=== PATIENT | female | born 1975 | race Two or more races ===

== ENCOUNTER 2017-09-08 18:51 | Inpatient (IN) | payer MEDICAID ==
[~2017-09-08] VITALS: Ht 157.5 cm; Wt 77.1 kg
[2017-09-08 19:25] VITALS: BP 106/73
--- NOTE | 2017-09-08 19:39 | Emergency Room Report ---
History of Present Illness General Chief Complaint: Abdominal Pain Source: Patient (Neli Bryant M.D.) Present Illness HPI 42-year-old female with no sig pmhx p/w abdominal pain 2 days. Patient states pain started last night, localized to and right side of abdomen, non radiating, sharp in nature, intermittent. No relieving or exacerbating factors. Severity is 5/10. Patient went to the primary care doctor's office today, got an ultrasound which showed an appendicitis today Denies nvd. States that she had fever yesterday No hx of abdominal surgeries. No hx of endoscopies/colonoscopies. (Neli Bryant M.D.) Allergies: Coded Allergies: No Known Allergies (Unverified , 09/08/17) Patient History Past Medical History: see triage record Past Surgical History: none Pertinent Family History: none Last Menstrual Period: 08/27/17 Now: No Reviewed Nursing Documentation: PMH: Agreed, PSxH: Agreed (Neli Bryant M.D. ) Review of Systems All Other Systems: negative except mentioned in HPI (Neli Bryant M.D.) Physical Exam Vital Signs Date Time Temp Pulse Resp B/P (MAP) Pulse Ox O2 Delivery O2 Flow Rate FiO2 09/08/17 19:11 98.6 79 16 106/73 100 Room Air Sp02 EP Interpretation: reviewed, normal General Appearance: alert, GCS 15, non-toxic, moderate distress Head: normocephalic, atraumatic Eyes: bilateral eye normal inspection, bilateral eye PERRL, bilateral eye EOMI ENT: normal ENT inspection, normal pharynx, normal voice, moist mucus membranes Neck: normal inspection, full range of motion, supple Respiratory: normal inspection, lungs clear, normal breath sounds, no respiratory distress, no retraction, no wheezing, speaking full sentences, chest symmetrical Cardiovascular #1: normal inspection, regular rate, rhythm, no edema, normal capillary refill Cardiovascular #2: 2+ radial (R), 2+ radial (L) Gastrointestinal: other - Suprapubic and right lower quadrant tenderness, voluntarily guarding, no rebound Musculoskeletal: normal inspection, back normal, normal range of motion, non- tender Neurologic: normal inspection, alert, oriented x3, responsive, motor strength/ tone normal, sensory intact, normal gait, speech normal Psychiatric: normal inspection, judgement/insight normal, memory normal Skin: normal inspection, normal color, no rash, warm/dry, well hydrated, normal turgor (Neli Bryant M.D.) Medical Decision Making Diagnostic Impression: Primary Impression: Acute appendicitis, uncomplicated ER Course 42-year-old female with abdominal pain Differential Diagnosis: Gastritis, gastroenteritis, cholecystitis, appendicitis, diverticulitis, UTI/ pyelo Plan: Basic labs, ua, ekg pain control, IVF CT abdopelvis ER Course: Patient has been stable in the ED. Dr Alex has been made aware of her case however is still pending CT abdo pelvis Dis[facility]: [facility] 42 [facility] with [facility]d [facility] -pending CT abdo pelvis -Dr Alex aware of patient, however pending CT results Please note that this Emergency Department Report was dictated using [employer] machine operator technology software, occasionally this can lead to erroneous entry secondary to interpretation by the dictation equipment. EKG Diagnostic Results EP Interpretation: Yes Rate: normal Rhythm: NSR ST Segments: No acute changes ASA given to patient: no Rhythm Strip EP Interpretation: Yes Rate: 71 Rhythm: NSR, no PVCs, no ectopy Laboratory Tests Test 09/08/17 19:35 09/08/17 19:47 White Blood Count 9.9 K/UL (4.8-10.8) Red Blood Count 4.03 M/UL (4.20-5.40) L Hemoglobin 11.5 G/DL (12.0-16.0) L Hematocrit 35.4 % (37.0-47.0) L Mean Corpuscular Volume 88 FL (80-99) Mean Corpuscular Hemoglobin 28.4 PG (27.0-31.0) Mean Corpuscular Hemoglobin Concent 32.4 G/DL (32.0-36.0) Red Cell Distribution Width 12.1 % (11.6-14.8) Platelet Count 241 K/UL (150-450) Mean Platelet Volume 7.6 FL (6.5-10.1) Neutrophils (%) (Auto) 65.6 % (45.0-75.0) Lymphocytes (%) (Auto) 24.7 % (20.0-45.0) Monocytes (%) (Auto) 6.2 % (1.0-10.0) Eosinophils (%) (Auto) 2.3 % (0.0-3.0) Basophils (%) (Auto) 1.1 % (0.0-2.0) Prothrombin Time 10.3 SEC (9.30-11.50) Prothrombin Time INR 1.0 (0.9-1.1) PTT 29 SEC (23-33) Sodium Level 140 MMOL/L (136-145) Potassium Level 3.3 MMOL/L (3.5-5.1) L Chloride Level 103 MMOL/L (98-107) Carbon Dioxide Level 28 MMOL/L (21-32) Anion Gap 9 mmol/L (5-15) Blood Urea Nitrogen 11 mg/dL (7-18) Creatinine 0.7 MG/DL (0.55-1.30) Estimate Glomerular Filtration Rate > 60 mL/min (>60) Glucose Level 94 MG/DL (74-106) Calcium Level 8.7 MG/DL (8.5-10.1) Total Bilirubin 0.4 MG/DL (0.2-1.0) Aspartate Amino Transferase (AST) 15 U/L (15-37) Alanine Aminotransferase (ALT) 22 U/L (12-78) Alkaline Phosphatase 57 U/L (46-116) Total Protein 7.6 G/DL (6.4-8.2) Albumin 3.7 G/DL (3.4-5.0) Globulin 3.9 g/dL Albumin/Globulin Ratio 0.9 (1.0-2.7) L Lipase 121 U/L (73-393) Urine Color Pale yellow Urine Appearance Slightly cloudy Urine pH 5 (4.5-8.0) Urine Specific [place] 1.015 (1.005-1.035) Urine Protein Negative (NEGATIVE) Urine Glucose (UA) Negative (NEGATIVE) Urine Ketones 2+ (NEGATIVE) H Urine Occult Blood 3+ (NEGATIVE) H Urine Nitrite Negative (NEGATIVE) Urine Bilirubin Negative (NEGATIVE) Urine Urobilinogen Normal MG/DL (0.0-1.0) Urine Leukocyte Esterase 3+ (NEGATIVE) H Urine RBC 2-4 /HPF (0 - 2) H Urine WBC 10-15 /HPF (0 - 2) H Urine Squamous Epithelial Cells Moderate /LPF (NONE/OCC) H Urine Bacteria Few /HPF (NONE) Urine HCG, Qualitative Negative (Retino,Clairose Charlene.) ER Course Hospital Course 42-year-old female referred to ED with right lower quadrant pain. Had ultrasound documenting appendicitis Clinical course Patient initially seen and evaluated by Dr. Bryant; please see her note for full history and physical Labs - no leukocytosis noted, Hb/Hct stable. electrolytes ok. UA unremarkable CT abdomen and pelvis - appendicits Antibiotics given. patient made NPO. Case discussed with Dr. Alex and he agreed to take the patient to the OR. Case discussed with Dr. Grimes and he agreed to accept the patient to his service for further care and support I feel this is a highly complex case requiring extensive working including EKG/ Rhythm strip, Xray/CT/US, Blood/urine lab work, repeat exams while in ED, and administration of strong opiates/narcotics for pain control, admission to hospital or close patient follow up. Diagnosis - appendicitis Admitted to floor in serious condition Labs Test 09/08/17 19:35 09/08/17 19:47 White Blood Count 9.9 K/UL (4.8-10.8) Red Blood Count 4.03 M/UL (4.20-5.40) Hemoglobin 11.5 G/DL (12.0-16.0) Hematocrit 35.4 % (37.0-47.0) Mean Corpuscular Volume 88 FL (80-99) Mean Corpuscular Hemoglobin 28.4 PG (27.0-31.0) Mean Corpuscular Hemoglobin Concent 32.4 G/DL (32.0-36.0) Red Cell Distribution Width 12.1 % (11.6-14.8) Platelet Count 241 K/UL (150-450) Mean Platelet Volume 7.6 FL (6.5-10.1) Neutrophils (%) (Auto) 65.6 % (45.0-75.0) Lymphocytes (%) (Auto) 24.7 % (20.0-45.0) Monocytes (%) (Auto) 6.2 % (1.0-10.0) Eosinophils (%) (Auto) 2.3 % (0.0-3.0) Basophils (%) (Auto) 1.1 % (0.0-2.0) Prothrombin Time 10.3 SEC (9.30-11.50) Prothromb Time International Ratio 1.0 (0.9-1.1) Activated Partial Thromboplast Time 29 SEC (23-33) Sodium Level 140 MMOL/L (136-145) Potassium Level 3.3 MMOL/L (3.5-5.1) Chloride Level 103 MMOL/L (98-107) Carbon Dioxide Level 28 MMOL/L (21-32) Anion Gap 9 mmol/L (5-15) Blood Urea Nitrogen 11 mg/dL (7-18) Creatinine 0.7 MG/DL (0.55-1.30) Estimat Glomerular Filtration Rate > 60 mL/min (>60) Glucose Level 94 MG/DL (74-106) Calcium Level 8.7 MG/DL (8.5-10.1) Total Bilirubin 0.4 MG/DL (0.2-1.0) Aspartate Amino Transf (AST/SGOT) 15 U/L (15-37) Alanine Aminotransferase (ALT/SGPT) 22 U/L (12-78) Alkaline Phosphatase 57 U/L (46-116) Total Protein 7.6 G/DL (6.4-8.2) Albumin 3.7 G/DL (3.4-5.0) Globulin 3.9 g/dL Albumin/Globulin Ratio 0.9 (1.0-2.7) Lipase 121 U/L (73-393) Urine Color Pale yellow Urine Appearance Slightly cloudy Urine pH 5 (4.5-8.0) Urine Specific [place] 1.015 (1.005-1.035) Urine Protein Negative (NEGATIVE) Urine Glucose (UA) Negative (NEGATIVE) Urine Ketones 2+ (NEGATIVE) Urine Occult Blood 3+ (NEGATIVE) Urine Nitrite Negative (NEGATIVE) Urine Bilirubin Negative (NEGATIVE) Urine Urobilinogen Normal MG/DL (0.0-1.0) Urine Leukocyte Esterase 3+ (NEGATIVE) Urine RBC 2-4 /HPF (0 - 2) Urine WBC 10-15 /HPF (0 - 2) Urine Squamous Epithelial Cells Moderate /LPF (NONE/OCC) Urine Bacteria Few /HPF (NONE) Urine HCG, Qualitative Negative Labs Test 09/08/17 19:35 09/08/17 19:47 White Blood Count 9.9 K/UL (4.8-10.8) Red Blood Count 4.03 M/UL (4.20-5.40) Hemoglobin 11.5 G/DL (12.0-16.0) Hematocrit 35.4 % (37.0-47.0) Mean Corpuscular Volume 88 FL (80-99) Mean Corpuscular Hemoglobin 28.4 PG (27.0-31.0) Mean Corpuscular Hemoglobin Concent 32.4 G/DL (32.0-36.0) Red Cell Distribution Width 12.1 % (11.6-14.8) Platelet Count 241 K/UL (150-450) Mean Platelet Volume 7.6 FL (6.5-10.1) Neutrophils (%) (Auto) 65.6 % (45.0-75.0) Lymphocytes (%) (Auto) 24.7 % (20.0-45.0) Monocytes (%) (Auto) 6.2 % (1.0-10.0) Eosinophils (%) (Auto) 2.3 % (0.0-3.0) Basophils (%) (Auto) 1.1 % (0.0-2.0) Prothrombin Time 10.3 SEC (9.30-11.50) Prothromb Time International Ratio 1.0 (0.9-1.1) Activated Partial Thromboplast Time 29 SEC (23-33) Sodium Level 140 MMOL/L (136-145) Potassium Level 3.3 MMOL/L (3.5-5.1) Chloride Level 103 MMOL/L (98-107) Carbon Dioxide Level 28 MMOL/L (21-32) Anion Gap 9 mmol/L (5-15) Blood Urea Nitrogen 11 mg/dL (7-18) Creatinine 0.7 MG/DL (0.55-1.30) Estimat Glomerular Filtration Rate > 60 mL/min (>60) Glucose Level 94 MG/DL (74-106) Calcium Level 8.7 MG/DL (8.5-10.1) Total Bilirubin 0.4 MG/DL (0.2-1.0) Aspartate Amino Transf (AST/SGOT) 15 U/L (15-37) Alanine Aminotransferase (ALT/SGPT) 22 U/L (12-78) Alkaline Phosphatase 57 U/L (46-116) Total Protein 7.6 G/DL (6.4-8.2) Albumin 3.7 G/DL (3.4-5.0) Globulin 3.9 g/dL Albumin/Globulin Ratio 0.9 (1.0-2.7) Lipase 121 U/L (73-393) Urine Color Pale yellow Urine Appearance Slightly cloudy Urine pH 5 (4.5-8.0) Urine Specific [place] 1.015 (1.005-1.035) Urine Protein Negative (NEGATIVE) Urine Glucose (UA) Negative (NEGATIVE) Urine Ketones 2+ (NEGATIVE) Urine Occult Blood 3+ (NEGATIVE) Urine Nitrite Negative (NEGATIVE) Urine Bilirubin Negative (NEGATIVE) Urine Urobilinogen Normal MG/DL (0.0-1.0) Urine Leukocyte Esterase 3+ (NEGATIVE) Urine RBC 2-4 /HPF (0 - 2) Urine WBC 10-15 /HPF (0 - 2) Urine Squamous Epithelial Cells Moderate /LPF (NONE/OCC) Urine Bacteria Few /HPF (NONE) Urine HCG, Qualitative Negative (MICHELLE KUMAR M.D.) CT/MRI/US Diagnostic Results CT/MRI/US Diagnostic Results : Imaging Test Ordered: CT A/P Impression appendicitis (MICHELLE KUMAR M.D.) Last Vital Signs Date Time Temp Pulse Resp B/P (MAP) Pulse Ox O2 Delivery O2 Flow Rate FiO2 09/08/17 19:11 98.6 79 16 106/73 100 Room Air (Neli Bryant M.D.) Status: improved (MICHELLE KUMAR M.D.) Disposition: ADMITTED INPATIENT Condition: Serious Neli Bryant M.D. Sep 08, 2017 19:39 MICHELLE KUMAR M.D. Sep 09, 2017 00:17
[2017-09-08 20:03] LABS: BASOPHILS % (AUTO) 1.1 % (0.0-2.0); EOSINOPHILS % (AUTO) 2.3 % (0.0-3.0); LYMPHOCYTES % (AUTO) 24.7 % (20.0-45.0); MEAN CORPUSCULAR HEMOGLOBIN 28.4 PG (27.0-31.0); MEAN CORPUSCULAR HGB CONC 32.4 G/DL (32.0-36.0); MEAN CORPUSCULAR VOLUME 88 FL (80-99); MEAN PLATELET VOLUME 7.6 FL (6.5-10.1); MONOCYTES % (AUTO) 6.2 % (1.0-10.0); NEUTROPHILS % (AUTO) 65.6 % (45.0-75.0); PLATELET COUNT 241 K/UL (150-450); RED BLOOD COUNT 4.03 M/UL (4.20-5.40); RED CELL DISTRIBUTION WIDTH 12.1 % (11.6-14.8); WHITE BLOOD COUNT 9.9 K/UL (4.8-10.8)
[2017-09-08 20:03] LABS: APPEARANCE,URINE SLIGHTLY CLOUDY; KETONES,URINE 2+ (NEGATIVE); LEUKOCYTE ESTERASE ,URINE 3+ (NEGATIVE); NITRITE,URINE NEGATIVE (NEGATIVE); PH,URINE 5 (4.5-8.0); PROTEIN,URINE NEGATIVE (NEGATIVE); UROBILINOGEN,URINE NORMAL MG/DL (0.0-1.0)
[2017-09-08 20:12] LABS: BACTERIA,URINE FEW /HPF; SQUAMOUS EPITHELIAL CELL,UR MODERATE /LPF (NONE/OCC)
[2017-09-08 20:13] LABS: ANION GAP 9 mmol/L (5-15); CALCIUM 8.7 MG/DL (8.5-10.1); CARBON DIOXIDE 28 MMOL/L (21-32); CHLORIDE 103 MMOL/L (98-107); CREATININE 0.7 MG/DL (0.55-1.30); GLOMERULAR FILTRATION RATE > 60 mL/min (>60); POTASSIUM 3.3 MMOL/L (3.5-5.1); SODIUM 140 MMOL/L (136-145)
[2017-09-08 20:17] LABS: ALANINE AMINOTRANSFERASE 22 U/L (12-78); ALBUMIN/GLOBULIN RATIO 0.9 (1.0-2.7); ASPARTATE AMINO TRANSFERASE 15 U/L (15-37); LIPASE 121 U/L (73-393); TOTAL PROTEIN 7.6 G/DL (6.4-8.2)
[2017-09-08 20:24] LABS: PROTHROMBIN TIME 10.3 SEC (9.30-11.50)
[2017-09-08 21:00] VITALS: BP 110/71
[2017-09-08] MEDS ORDERED: Zosyn 3.375gm inj ONE (22:21)
[2017-09-08] MEDS ORDERED: Piperacillin/Tazobactam 3.375 GM in NS 55 ML IVPB ONE (22:30)
[2017-09-08 22:34] VITALS: BP 108/74
--- NOTE | 2017-09-08 22:53 | Consultation ---
History of Present Illness General Chief Complaint: Abdominal Pain Reason for Consultation: acute appendicitis Present Illness HPI 42 year old otherwise healthy female presents to ED complaining of RLQ abdominal pain x 1 day. As per patient, she was in her normal state of health until late last night when she began to note some vague RLQ abdominal tenderness. Pain described as cramping 6-8/10 pain with no radiation. Associated with nausea and 1 episode of non bloody emesis. Went to her PCP today which identified RLQ tenderness and performed ultrasound which was positive for appendicitis. Was sent to [facility] ED for evaluation. In ED CT ordered and identified dilated inflamed appendix. Surgery called to evaluate. Allergies: Coded Allergies: No Known Allergies (Unverified , 09/08/17) Patient History History Provided By: Patient Healthcare decision maker Resuscitation status Advanced Directive on File Past Medical/Surgical History Past Medical/Surgical History: (1) Acute appendicitis, uncomplicated Review of Systems Constitutional: Denies: no symptoms, see HPI, chills, sweats, fever, malaise, weakness, other Eye: Denies: no symptoms, see HPI, eye pain, blurred vision, tearing, double vision, nose pain, nose congestion, acuity changes, discharge, other ENT: Denies: no symptoms, see HPI, ear pain, ear discharge, nose pain, nose congestion, throat pain, throat swelling, mouth pain, hearing loss, nasal discharge, other Respiratory: Denies: no symptoms, see HPI, cough, orthopnea, shortness of breath, stridor, wheezing, BAUER, sputum, other Cardiovascular: Denies: no symptoms, see HPI, chest pain, edema, palpitations, syncope, PND, other Gastrointestinal: Reports: abdominal pain, nausea, vomiting Genitourinary: Denies: no symptoms, see HPI, discharge, dysuria, frequency, hematuria, pain, retention, incontinence, urgency, vag bleed/dc, other Musculoskeletal: Denies: no symptoms, see HPI, back pain, gout, joint pain, joint swelling, muscle pain, muscle stiffness, other Skin: Denies: no symptoms, see HPI, rash, change in color, change in hair/nails , dryness, lesions, other Psychiatric: Denies: no symptoms, see HPI, prior hx, anxiety, depressed feelings, emotional problems, SI, HI, hallucinations, other Neurological: Denies: no symptoms, see HPI, headache, numbness, paresthesia, seizure, tingling, tremors, focal weakness, syncope, dizziness, other Endocrine: Denies: no symptoms, see HPI, excessive sweating, flushing, intolerance to temperature, increased thirst, increased urine, unexplained weight loss, other Hematologic/Lymphatic: Denies: no symptoms, see HPI, anemia, blood clots, easy bleeding, easy bruising, swollen glands, diathesis, other All Other Systems: negative except mentioned in HPI Physical Exam General Appearance: WD/WN, no apparent distress, alert Lines, tubes and drains: peripheral HEENT: mucous membranes moist, PERRL Neck: normal inspection Respiratory/Chest: normal breath sounds, no respiratory distress, no accessory muscle use Cardiovascular/Chest: normal peripheral pulses, normal rate, regular rhythm Abdomen: normal bowel sounds, non tender, soft, no organomegaly, no mass Extremities: normal inspection, no calf tenderness Skin Exam: normal pigmentation, warm/dry Neurologic: alert, oriented x 3, responsive Last 24 Hour Vital Signs Date Time Temp Pulse Resp B/P (MAP) Pulse Ox O2 Delivery O2 Flow Rate FiO2 09/08/17 22:34 98.4 71 16 108/74 98 Room Air 09/08/17 21:00 98.3 75 16 110/71 99 Room Air 09/08/17 19:25 98.6 71 15 106/73 100 Room Air 09/08/17 19:11 98.6 79 16 106/73 100 Room Air Laboratory Tests Test 09/08/17 19:35 09/08/17 19:47 White Blood Count 9.9 K/UL (4.8-10.8) Red Blood Count 4.03 M/UL (4.20-5.40) L Hemoglobin 11.5 G/DL (12.0-16.0) L Hematocrit 35.4 % (37.0-47.0) L Mean Corpuscular Volume 88 FL (80-99) Mean Corpuscular Hemoglobin 28.4 PG (27.0-31.0) Mean Corpuscular Hemoglobin Concent 32.4 G/DL (32.0-36.0) Red Cell Distribution Width 12.1 % (11.6-14.8) Platelet Count 241 K/UL (150-450) Mean Platelet Volume 7.6 FL (6.5-10.1) Neutrophils (%) (Auto) 65.6 % (45.0-75.0) Lymphocytes (%) (Auto) 24.7 % (20.0-45.0) Monocytes (%) (Auto) 6.2 % (1.0-10.0) Eosinophils (%) (Auto) 2.3 % (0.0-3.0) Basophils (%) (Auto) 1.1 % (0.0-2.0) Prothrombin Time 10.3 SEC (9.30-11.50) Prothromb Time International Ratio 1.0 (0.9-1.1) Activated Partial Thromboplast Time 29 SEC (23-33) Sodium Level 140 MMOL/L (136-145) Potassium Level 3.3 MMOL/L (3.5-5.1) L Chloride Level 103 MMOL/L (98-107) Carbon Dioxide Level 28 MMOL/L (21-32) Anion Gap 9 mmol/L (5-15) Blood Urea Nitrogen 11 mg/dL (7-18) Creatinine 0.7 MG/DL (0.55-1.30) Estimat Glomerular Filtration Rate > 60 mL/min (>60) Glucose Level 94 MG/DL (74-106) Calcium Level 8.7 MG/DL (8.5-10.1) Total Bilirubin 0.4 MG/DL (0.2-1.0) Aspartate Amino Transf (AST/SGOT) 15 U/L (15-37) Alanine Aminotransferase (ALT/SGPT) 22 U/L (12-78) Alkaline Phosphatase 57 U/L (46-116) Total Protein 7.6 G/DL (6.4-8.2) Albumin 3.7 G/DL (3.4-5.0) Globulin 3.9 g/dL Albumin/Globulin Ratio 0.9 (1.0-2.7) L Lipase 121 U/L (73-393) Urine Color Pale yellow Urine Appearance Slightly cloudy Urine pH 5 (4.5-8.0) Urine Specific [place] 1.015 (1.005-1.035) Urine Protein Negative (NEGATIVE) Urine Glucose (UA) Negative (NEGATIVE) Urine Ketones 2+ (NEGATIVE) H Urine Occult Blood 3+ (NEGATIVE) H Urine Nitrite Negative (NEGATIVE) Urine Bilirubin Negative (NEGATIVE) Urine Urobilinogen Normal MG/DL (0.0-1.0) Urine Leukocyte Esterase 3+ (NEGATIVE) H Urine RBC 2-4 /HPF (0 - 2) H Urine WBC 10-15 /HPF (0 - 2) H Urine Squamous Epithelial Cells Moderate /LPF (NONE/OCC) H Urine Bacteria Few /HPF (NONE) Urine HCG, Qualitative Negative Height (Feet): 5 Height (Inches): 2.00 Weight (Pounds): 160 Medications Current Medications Medications (Trade) Dose Ordered Sig/Padmini Route PRN Reason Start Time Stop Time Status Last Admin Dose Admin Piperacillin Sod/ Tazobactam Sod 3.375 gm/Sodium Chloride 55 ml @ 110 mls/hr ONCE ONCE IVPB 09/08/17 22:30 09/08/17 22:59 09/08/17 22:33 Sodium Chloride 1,000 ml @ 999 mls/hr Q1H1M ONCE IV 09/08/17 22:30 09/08/17 23:30 09/08/17 22:33 Assessment/Plan Problem List: (1) Acute appendicitis, uncomplicated Assessment & Plan: 42 year old female with early acute uncomplicated appendicitis. Afebrile, HD stable, VSS, labs normal, no leukocytosis, CT with dilated inflamed appendix, exam with McBurney's point tenderness RLQ focal tenderness without rebound and mild voluntary guarding. -Admit -NPO with IV fluids -IV Abx -Will proceed to OR first thing tomorrow morning for lap vs open appendectomy. -Consent in chart ICD Codes: K35.80 - Unspecified acute appendicitis SNOMED: [id number] Status: stable Mick Alex Sep 08, 2017 22:53
--- NOTE | 2017-09-08 22:54 | Pre-Procedure Note/Attestation ---
Pre-Procedure Note/Attestation Complete Prior to Procedure Planned Procedure: not applicable Procedure Narrative: laparoscopic possible open appendectomy Indications for Procedure Pre-Operative Diagnosis: early acute appendicitis Attestation I attest that I discussed the nature of the procedure; its benefits; risks and complications; and alternatives (and the risks and benefits of such alternatives ), prior to the procedure, with the patient (or the patient's legal manufacturers service representative). I attest that, if there was a reasonable possibility of needing a blood transfusion, the patient (or the patient's legal manufacturers service representative) was given the [facility] standardized written summary, pursuant to the [place] Blood Safety Act ([place] Health and Safety Code # 1645, as amended). I attest that I re-evaluated the patient just prior to the surgery and that there has been no change in the patient's H&P, except as documented below: Mick Alex Sep 08, 2017 22:54
[2017-09-08] MEDS ORDERED: Morphine Sulfate 2mg/ml Inj IVP PRN ×2 (23:00)
[2017-09-08] MEDS ORDERED: DiphenhydrAMINE 50mg/ml Inj IVP PRN (23:00)
[2017-09-08] MEDS ORDERED: Metoclopramide 10mg/2ml Inj IVP PRN (23:00)
[2017-09-08] MEDS ORDERED: Morphine Sulfate 4mg/ml Inj IVP PRN (23:00)
[2017-09-08 23:34] VITALS: BP 115/76
[2017-09-09] VITALS (11 sets, daily range): BP systolic 97–124; BP diastolic 56–76
[2017-09-09] MEDS ORDERED: Piperacillin/Tazobactam 3.375 GM in NS 55 ML IVPB SCH ×2
[2017-09-09] MEDS: D5 1/2NS w/KCl 20mEq 1,000 ML IV SCH ×2 (00:37→08:00)
[2017-09-09] MEDS ORDERED: Zosyn 3.375gm inj ONE (04:15)
[2017-09-09] MEDS ORDERED: Zosyn 3.375gm q8h **Extended infusion IVPB SCH ×2 (06:00)
[2017-09-09] MEDS ORDERED: Bupivacaine 0.25% Inj 30ml INJ ONE (07:51)
[2017-09-09] MEDS ORDERED: Lidocaine 1% 10mg/ml/EPI 0.01mg/ml 50ml INJ ONE (08:23)
[2017-09-09] MEDS ORDERED: Succinylcholine 20mg/ml 10ml vial ONE (08:30)
[2017-09-09] MEDS ORDERED: fentaNYL 100 mcg/2 mL IV ONE (08:30)
[2017-09-09] MEDS ORDERED: LR 1000ml ONE (08:30)
[2017-09-09] MEDS ORDERED: Midazolam 2mg/2ml Inj ONE (08:30)
[2017-09-09] MEDS ORDERED: Zemuron 50mg/5ml Inj IV ONE (08:30)
[2017-09-09] MEDS ORDERED: Neostigmine 1mg/ml 10ml Inj ONE (08:30)
[2017-09-09] MEDS ORDERED: NS Irrig 1000ml ONE (08:30)
[2017-09-09] MEDS ORDERED: Glycopyrrolate 0.2mg/ml 1ml Vial ONE (08:30)
[2017-09-09] MEDS ORDERED: Ketorolac 30mg Inj ONE (08:30)
[2017-09-09] MEDS ORDERED: Propofol 200mg/20ml IV ONE (08:30)
[2017-09-09] MEDS ORDERED: NS Irrig 1000ml IRRIG ONE (08:59)
[2017-09-09] MEDS ORDERED: LR 1000ml 1,000 ML IVLG SCH (09:07)
--- NOTE | 2017-09-09 09:07 | Anethesia Preoperative Eval ---
Anesthesia Pre-op PMH/ROS General Date of Evaluation: Sep 09, 2017 Time of Evaluation: 08:22 Anesthesiologist: Ger ASA Score: ASA 2 Mallampati Score Class I : Soft palate, uvula, fauces, pillars visible Class II: Soft palate, uvula, fauces visible Class III: Soft palate, base of uvula visible Class IV: Only hard plate visible Mallampati Classification: Class II Surgeon: Maye Diagnosis: Acute appendicitis Surgical Procedure: Laparoccopic appendectomy Anesthesia History: none Family History: no anesthesia problems Allergies: Coded Allergies: No Known Allergies (Unverified , 09/08/17) Medications: see eMAR Past Medical History Cardiovascular: Denies: HTN, CAD, [place], valve dz, arrhythmia, other Pulmonary: Denies: asthma, COPD, JHON, other Gastrointestinal/Genitourinary: Reports: GERD - mild, Denies: CRI, ESRD, other Neurologic/Psychiatric: Denies: dementia, CVA, depression/anxiety, TIA, other Endocrine: Denies: DM, hypothyroidism, steroids, other HEENT: Denies: cataract (L), cataract (R), glaucoma, [place] (L), [place] (R), other Hematology/Immune: Denies: anemia, DVT, bleeding disorder, other Musculoskeletal/Integumentary: Denies: OA, RA, DJD, DDD, edema, other Other: other - overweight PMH Narrative: admitted for acute abdominal pain appendicitis on CT PSxH Narrative: none Anesthesia Pre-op Phys. Exam Physician Exam Last Vital Signs Date Time Temp Pulse Resp B/P (MAP) Pulse Ox O2 Delivery O2 Flow Rate FiO2 09/09/17 08:35 97.9 75 20 108/71 100 Room Air Constitutional: NAD Neurologic: CN 2-12 intact Cardiovascular: RRR, no M/R/G Respiratory: CTA Gastrointestinal: S/NT/ND, other - slightly tender Airway Exam Mallampati Score: Class II MO: full Neck: short ROM: full Teeth: missing Dentures: upper Anesthesia Pre-op A/P Labs Hematology Test 09/08/17 19:35 White Blood Count 9.9 K/UL (4.8-10.8) Red Blood Count 4.03 M/UL (4.20-5.40) L Hemoglobin 11.5 G/DL (12.0-16.0) L Hematocrit 35.4 % (37.0-47.0) L Mean Corpuscular Volume 88 FL (80-99) Mean Corpuscular Hemoglobin 28.4 PG (27.0-31.0) Mean Corpuscular Hemoglobin Concent 32.4 G/DL (32.0-36.0) Red Cell Distribution Width 12.1 % (11.6-14.8) Platelet Count 241 K/UL (150-450) Mean Platelet Volume 7.6 FL (6.5-10.1) Neutrophils (%) (Auto) 65.6 % (45.0-75.0) Lymphocytes (%) (Auto) 24.7 % (20.0-45.0) Monocytes (%) (Auto) 6.2 % (1.0-10.0) Eosinophils (%) (Auto) 2.3 % (0.0-3.0) Basophils (%) (Auto) 1.1 % (0.0-2.0) Coagulation Test 09/08/17 19:35 Prothrombin Time 10.3 SEC (9.30-11.50) Prothromb Time International Ratio 1.0 (0.9-1.1) Activated Partial Thromboplast Time 29 SEC (23-33) Chemistry Test 09/08/17 19:35 Sodium Level 140 MMOL/L (136-145) Potassium Level 3.3 MMOL/L (3.5-5.1) L Chloride Level 103 MMOL/L (98-107) Carbon Dioxide Level 28 MMOL/L (21-32) Anion Gap 9 mmol/L (5-15) Blood Urea Nitrogen 11 mg/dL (7-18) Creatinine 0.7 MG/DL (0.55-1.30) Estimat Glomerular Filtration Rate > 60 mL/min (>60) Glucose Level 94 MG/DL (74-106) Calcium Level 8.7 MG/DL (8.5-10.1) Total Bilirubin 0.4 MG/DL (0.2-1.0) Aspartate Amino Transf (AST/SGOT) 15 U/L (15-37) Alanine Aminotransferase (ALT/SGPT) 22 U/L (12-78) Alkaline Phosphatase 57 U/L (46-116) Total Protein 7.6 G/DL (6.4-8.2) Albumin 3.7 G/DL (3.4-5.0) Globulin 3.9 g/dL Albumin/Globulin Ratio 0.9 (1.0-2.7) L Lipase 121 U/L (73-393) Urine Test Test 09/08/17 19:47 Urine HCG, Qualitative Negative Studies Pre-op Studies: EKG - NSR Risk Assessment & Plan Assessment: ASA 2 Plan: GA with ETT PONV prevention Status Change Before Surgery: No Pre-Antibiotics Drug: as scheduled ZENON GUY M.D. Sep 09, 2017 09:07
[2017-09-09] MEDS ORDERED: Meperidine 50mg/ml Inj(FOR RIGORS ONLY) IV PRN (09:15)
[2017-09-09] MEDS ORDERED: Ketorolac 30mg Inj IV PRN (09:15)
[2017-09-09] MEDS ORDERED: DiphenhydrAMINE 50mg/ml Inj IVP PRN (09:15)
[2017-09-09] MEDS ORDERED: Hydromorphone 0.5mg/0.5ml inj IVP PRN (09:15)
[2017-09-09] MEDS ORDERED: Metoclopramide 10mg/2ml Inj IVP PRN (09:15)
[2017-09-09] MEDS ORDERED: Midazolam 2mg/2ml Inj IVP PRN (09:15)
--- NOTE | 2017-09-09 09:24 | Diagnostic Imaging Report ---
Indication: Abdominal pain Technique: CT scan of the abdomen and pelvis was performed from the diaphragms to the symphysis pubis with intravenous contrast material and oral contrast material. Biphasic liver scanning was employed. 5 mm sections were generated. Axial, coronal, and sagittal images are presented. Dose: Total Dose Length Product - DLP [address] Dose Index - CTDIvol(s) 18.16 mGy. Automated exposure control was utilized for dose reduction. Comparison: None Findings: The liver is normal. The gallbladder is unremarkable. The spleen is normal. The pancreas is normal. Adrenal glands are normal. The kidneys are unremarkable. Aorta and inferior vena cava are normal caliber. Retroperitoneum is free of adenopathy. The appendix is dilated and filled with fluid. There is a small bubble of air within the appendix. There may be a tiny appendicolith in the base of the appendix. The uterus is unremarkable. There is a cyst in the left ovary measuring 2 cm. The bladder is unremarkable. The remainder the study is normal. Impression: Mildly enlarged appendix. This may represent early appendicitis. Clinical correlation is suggested. Left ovarian cyst, likely physiologic. The above report is concordant with preliminary reading by [employer] with minor difference. The CT scanner at [facility] is accredited by the [employer] and the scans are performed using protocols designed to limit radiation exposure to as low as reasonably achievable to attain images of sufficient resolution adequate for diagnostic evaluation.
--- NOTE | 2017-09-09 09:32 | Brief Operative Note ---
Immediate Post Operative Note Operative Note Pre-op Diagnosis: early acute appendicitis Procedure: laparoscopic appendectomy Findings: consistent w/pre-op dx studies Surgeon: jen PIZANO Anesthesiologist: Ger Anesthesia: general Specimen: yes - appendix Complications: none Condition: stable Fluids: n/a Estimated Blood Loss: minimal Drains: none Implant(s) used?: No Mick Alex Sep 09, 2017 09:32
--- NOTE | 2017-09-09 09:33 | General Progress Note ---
Progress Note Progress Note Surgery: s/p lap appy for early acute appendicitis. doing very well. no intraoperative complications. stable. recovering -diet as tolerated -activity as tolerated -okay to d/c home later today -restrictions: no lifting >15lbs for 4 weeks -Rx: norco/colace -follow up with me in 1-2 weeks. call [phone] for appointment. Mick Alex Sep 09, 2017 09:33
--- NOTE | 2017-09-09 09:40 | Immediate Post-Op Evaluation ---
Immediate Post-Op Evalulation Immediate Post-Op Evalulation Procedure: Laparoscopic appendectomy Date of Evaluation: Sep 09, 2017 Time of Evaluation: 09:39 IV Fluids: 700 Blood Products: none Estimated Blood Loss: min Urinary Output: none Blood Pressure Systolic: 117 Blood Pressure Diastolic: 73 Pulse Rate: 98 Respiratory Rate: 22 O2 Sat by Pulse Oximetry: 99 Temperature (Fahrenheit): 98.2 Pain Score (1-10): 2 Nausea: No Vomiting: No Complications none Patient Status: reacts, patent, extubated, none Hydration Status: adequate ZENON GUY M.D. Sep 09, 2017 09:40
[2017-09-09] MEDS ORDERED: Norco 10mg/325mg tab ORAL PRN (09:45)
[2017-09-09] MEDS ORDERED: Norco 5mg/325mg tab ORAL PRN (09:45)
--- NOTE | 2017-09-09 10:44 | 48 Hour Post Anesthesia Eval ---
Post Anesthesia Evaluation Procedure: Laparoscopic appendectomy Date of Evaluation: Sep 09, 2017 Time of Evaluation: 10:43 Blood Pressure Systolic: 107 0: 64 Pulse Rate: 84 Respiratory Rate: 22 Temperature (Fahrenheit): 97.6 O2 Sat by Pulse Oximetry: 98 Airway: patent Nausea: No Vomiting: No Pain Intensity: 2 Hydration Status: adequate Cardiopulmonary Status: stable Mental Status/LOC: patient returned to baseline Follow-up Care/Observations: n/a Post-Anesthesia Complications: none Follow-up care needed: ready to discharge ZENON GUY M.D. Sep 09, 2017 10:44
--- NOTE | 2017-09-09 16:30 | Operative Note - Dictated ---
DATE OF OPERATION: 09/09/2017 PREOPERATIVE DIAGNOSIS: Early acute appendicitis. POSTOPERATIVE DIAGNOSIS: Early acute appendicitis. OPERATION PERFORMED: Laparoscopic appendectomy. SURGEON: Mick Alex M.D. DIVISION MANAGER: None. ANESTHESIOLOGIST: Felipe Cyr M.D. ANESTHESIA: General SUPERVISOR ORDER TAKERS. ESTIMATED BLOOD LOSS: Minimal. IV FLUIDS: Please see anesthesia records. COMPLICATIONS: None. SPECIMENS: Appendix sent to pathology for review. DRAINS: None. WOUND CLASSIFICATION: Class 3. COUNTS: Sponge and needle count correct x2. ANTIBIOTICS: The patient was on scheduled IV Zosyn for therapeutic treatment. PERTINENT OPERATIVE FINDINGS: 1. No immediate operative complications. 2. Murky fluid noted in the pelvis. 3. Dilated appendix with injected tip. 4. Successful appendectomy without complications. 5. Disposition to PACU. INDICATIONS FOR PROCEDURE: This is a 42-year-old female with right lower quadrant abdominal pain with associated nausea and emesis for one day prior to admission. The patient states that she was in her otherwise normal state of health until she began to notice some vague right lower quadrant abdominal pain that progressively worsened. She went to her PCP, who did an ultrasound and identified a thickened large appendix. She was then transferred to [facility] Emergency Department for evaluation at which time she had a CT scan, which demonstrated findings consistent with early acute appendicitis. When seen at the bedside on examination, the patient had McBurney's point tenderness, focal right lower quadrant tenderness with rebound, and some mild voluntary guarding. Given above findings, surgery was indicated. Risks, benefits, and alternatives of surgery were discussed with the patient in detail. The patient expressed understanding and consented to surgery. OPERATIVE NOTE: The patient was taken to the operating room and placed on the operating table in supine position with bilateral arms out. All bony problems were well padded with gel pads. Preoperative time-out was taken identifying the patient, procedure, operative staff, and surgical staff. SCDs were placed. No Lion catheter was placed given the patient voided just prior to entering the operating room. General anesthesia was induced and the patient was intubated. The left arm was then tucked. The abdomen was then prepped and draped in standard surgical fashion. We began by making supraumbilical incision using a fresh #11 scalpel. Incision was carried down to the fascia, which was grasped, elevated, and incised. Entry into the peritoneum was confirmed visually without complication. Using an open Ryan technique, a Ryan trocar was entered into the abdomen. Abdomen insufflated 12 to 15 mmHg. The patient tolerated insufflation well. Laparoscope was then inserted and the abdomen inspected. No injury from initial trocar placement was noted. Secondary trocars were placed under direct visualization in the following locations beginning with a 12 mm trocar in the left lower quadrant followed by a 5 mm trocar in the suprapubic region. Local anesthetic was used for all trocar placements. No complications from primary or secondary trocar incisions noted. Abdomen was then inspected and there was murky free fluid in the pelvis and dilated appendix noted in the right lower quadrant. Otherwise, remainder of the abdomen was without significant finding. The patient was then placed in Trendelenburg position with the left side down. The appendix was grasped, elevated, and retracted so that the base of the appendix and the cecum could be visually identified. A window was made at the base of the appendix/confluence of the tenia. A laparoscopic linear stapler was then entered and the base of the appendix was divided from the cecum at the confluence of the taenia without complication. A vascular reload of the linear endoscopic stapler was then used to divide the mesoappendix. The appendix was then placed in endoscopic retrieval bag and removed through the left lower quadrant port. Appendix was sent to pathology for review. Following this, the base of the appendix stump and the mesoappendix stump were evaluated and there was some oozing of blood noted. For hemostasis, three 10 mm laparoscopic Endoclips were placed and hemostasis was achieved without complication. The right lower quadrant and pelvis were then irrigated and suctioned clean. Once this was complete, we began the conclusion of our case. Secondary trocars were removed under direct visualization. The umbilical Ryan trocar was then removed and the abdomen allowed to desufflate. The supraumbilical and left lower quadrant larger laparoscopic port sites were closed using a #0 UR Vicryl suture. Following this, all skin incisions were closed using 4-0 Monocryl subcuticular interrupted sutures. Wounds were cleansed. Steri-Strips and dressings were applied. The patient tolerated the procedure well and was extubated and taken to the postanesthetic care unit in stable condition. Mick Alex M.D. DR: Christopher JOB#: [id number] CC:
[2017-09-09] MEDS ORDERED: Tubing IV Secondary IV ONE (16:34)
[2017-09-09] MEDS ORDERED: NS 275ml ONE (16:34)
--- NOTE | 2017-09-09 17:30 | History and Physical Report ---
DATE OF ADMISSION: 09/08/2017 CHIEF COMPLAINT: Abdominal pain. HISTORY OF PRESENT ILLNESS: This is a 42-year-old, female with severe abdominal pain x2 days. By the time I am seeing the patient, the patient already had appendectomy by Dr. Alex. The patient is about to be discharged home. PAST MEDICAL HISTORY: None. MEDICATIONS: None. ALLERGIES: No known allergies. REVIEW OF SYSTEMS: HEENT: Hearing and eyesight are normal. ENDOCRINE: No history of diabetes, thyroid, or adrenal problems. RESPIRATORY: She denies shortness of breath, cough, or hemoptysis. CARDIOVASCULAR: She denies chest pain or palpitations. GASTROINTESTINAL: Please refer to history of present illness. PHYSICAL EXAMINATION: GENERAL: This is a middle-aged, obese female, who is in no acute distress. VITAL SIGNS: Blood pressure 107/64, pulse 84 and regular, respirations 22, and temperature is 98. HEENT: The head is normocephalic and atraumatic. Pupils are equal, round, and reactive to light and accommodation consensually. NECK: Supple. Trachea midline. There was no lymphadenopathy or thyromegaly. LUNGS: Clear to auscultation and percussion. HEART: Regular rate and rhythm without rubs, murmurs, or gallops. ABDOMEN: Soft and diffusely tender. She has postoperative wound, which is clean and dressed. EXTREMITIES: No clubbing, cyanosis, or edema. NEUROLOGIC: She is alert and oriented x4. Cranial nerves II through XII intact. LABORATORY AND ANCILLARY DATA: CBC within normal limits. Chemistry; potassium 3.3, otherwise within normal limits. Imaging reports CT of the abdomen and pelvis a mildly enlarged appendix representing acute appendicitis. ASSESSMENT: Acute appendicitis status post appendectomy. PLAN: Discharge home as per plan by Dr. Alex. Ajay Candelaria M.D. DR: AUDREY JOB#: [id number] CC:
[2017-09-10 03:36] VITALS: BP 101/72
[2017-09-10 08:23] VITALS: BP 114/74
--- NOTE | 2017-09-10 09:10 | General Progress Note ---
Assessment/Plan Assessment/Plan s/p Appendectomy. DC home Subjective Allergies: Coded Allergies: No Known Allergies (Unverified , 09/08/17) Subjective No new c/o Objective Last 24 Hour Vital Signs Date Time Temp Pulse Resp B/P (MAP) Pulse Ox O2 Delivery O2 Flow Rate FiO2 09/10/17 08:23 98.4 66 17 114/74 99 Room Air 09/10/17 03:36 97.5 63 20 101/72 98 Room Air 09/09/17 20:00 98.4 68 21 124/72 100 Room Air 09/09/17 18:23 97.7 09/09/17 15:42 97.7 79 20 97/63 97 09/09/17 11:43 97.5 71 20 98/56 100 09/09/17 10:44 84 22 98 09/09/17 10:21 98.0 72 20 107/64 100 Nasal Cannula 3.0 09/09/17 10:10 80 20 120/71 100 Nasal Cannula 3.0 09/09/17 10:01 72 20 114/76 100 Nasal Cannula 3.0 09/09/17 09:43 86 20 114/72 100 Nasal Cannula 3.0 09/09/17 09:40 98 22 99 09/09/17 09:38 106 20 116/69 99 Nasal Cannula 3.0 09/09/17 09:33 99.3 116 20 117/68 99 Simple Mask 8.0 Intake and Output 09/10/17 09/11/17 19:00 07:00 Intake Total 240 ml Balance 240 ml Intake Oral 240 ml Height (Feet): 5 Height (Inches): 2.00 Weight (Pounds): 170 Objective Cv RR Lungs CTa Abd post op. SNT. BS + E No CCE MELVA RENE Sep 10, 2017 09:10
[2017-09-10] MEDS ORDERED: COLACE100 MG ORAL (10:31)
[2017-09-10] MEDS ORDERED: NORCO 5-325 TA1 EACH ORAL (10:32)
[2017-09-10] MEDS ORDERED: Flu Vaccine Quadrivalent 0.5ml IM ONE (12:00)
[2017-09-10 12:34] VITALS: BP 118/69
--- NOTE | 2017-09-13 10:43 | Discharge Summary ---
Discharge Summary Hospital Course Date of Admission Sep 08, 2017 at 22:41 Date of Discharge Sep 10, 2017 at 13:50 Admitting Diagnosis ACUTE APPENDICITIS HPI Aleksandra Robert is a 42 year old female who was admitted on Sep 08, 2017 at 22:41 for Acute Appendicitis Hospital Course dc summary #[id number] Discharge Medications Continued Medications: Docusate Sodium* (Colace*) 100 Mg Capsule 100 MG ORAL TWICE A DAY, #60 CAP Hydrocodone Bit/Acetaminophen 5-325* ([place] 5-325*) 1 Each Tablet 1 TAB ORAL Q4H PRN for For Pain, #30 TAB 0 Refills Discharge Condition Upon Discharge: stable Discharge Disposition Patient was discharged to Home (01) Discharge Diagnoses: Discharge Instructions Discharge Instructions Special Instructions I have been assigned to complete a D/C Summary on this account. I was not involved in the patient management Ilana Castillo NP (Vanchtein) Sep 13, 2017 10:43
--- NOTE | 2017-09-13 16:00 | Discharge Summary 2 SIG ---
DATE OF ADMISSION: 09/08/2017 DATE OF DISCHARGE: 09/10/2017 REASON FOR ADMISSION: 42-year-old female presented to the emergency department with a complaint of abdominal pain for two days. The patient without any significant past medical history. In the emergency department, the patient was afebrile. EKG revealed normal sinus rhythm. No acute ischemic changes. CT of the abdomen and pelvis revealed acute mild appendicitis. The patient had no leukocytosis. WBC- 9.9 and potassium-3.3. The patient was admitted for further management with diagnosis of appendicitis. HOSPITAL STAY: Surgery consult was requested. Surgeon seen and evaluated the patient. The patient was hemodynamically stable. To reiterate, CT revealed dilated inflamed appendix. On exam the patient demonstrated McBurney's point tenderness and right lower quadrant focal tenderness. No rebound. Mild voluntary guarding. The patient was NPO, on IV hydration. The patient was started on empiric IV antibiotics. The patient subsequently undergone on 09/09/2017 laparoscopic appendectomy. Course of recovery was uneventful. The patient was slowly started on diet, was able to tolerate diet. Patient ambulated. No lifting more than 15 pounds for four weeks. Prescription provided for analgesic and stool softener. Surgeon cleared for discharge. Activity as tolerated. The patient to follow up with the surgeon in one to two weeks. The patient was stable for discharge. FINAL DIAGNOSES: 1. Acute uncomplicated appendicitis. 2. Status post laparoscopic appendectomy. DISCHARGE MEDICATIONS: See medication reconciliation list. DISCHARGE INSTRUCTIONS: The patient was discharged home. FOLLOWUP: Follow up with the surgeon in one to two weeks. Ajay Candelaria M.D. I have been assigned to dictate discharge summary on this account and I was not involved in the patient's management. Ilana Doradoronald N.P. DR: SAMANTHA JOB#: [id number] CC: JOVITA
--- NOTE | 2017-09-18 16:30 | Cardiology Report ---
APPROVED REPORT EKG Measurement Heart [id number] MA 150P0 [id number] Normal sinus rhythm Cannot rule out Anterior infarct, age undetermined Abnormal ECG
== END 2017-09-10 13:50 | disposition home or self-care (01) | DRG 225 ==
LOC: EMR 20:34 → 4E 22:41 → EDBEDREQ 23:05 → 4E 09-09 07:01
PROC: 0DTJ4ZZ Resection of Appendix, Percutaneous Endoscopic Approach (ICD-10-PCS; principal; 2017-09-09 08:30)
DX: K35.80 Unspecified acute appendicitis (principal); E66.9 Obesity, unspecified; Z68.31 Body mass index [BMI] 31.0-31.9, adult; Z23 Encounter for immunization
CPT/HCPCS: 36415; 74177; 80053; 81003; 81025; 83690; 85025; 85610; 85730; 86850; 86900; 86901; 87086; 90630; 93005; 94003; 94150; 99285; J2250; J2405; J2710